=== PATIENT | female | born 2000 | race Caucasian/White ===

== ENCOUNTER 2021-09-30 11:59 | Outpatient (CLI) | payer OTHER ==
[2021-10-01 08:45] LABS: SARS-CoV-2 PCR by NAA Not Detected (NotDetected)
== END 2021-09-30 12:00 | disposition home or self-care (01) ==
LOC: CSHLAB 11:59
PROVIDERS: ATTEND Family Medicine
DX: Z01.812 Encounter for preprocedural laboratory examination (principal); Z20.822 Contact with and (suspected) exposure to COVID-19
CPT/HCPCS: U0003; U0005

== ENCOUNTER 2021-10-03 19:15 | Inpatient (IN) | payer OTHER ==
[2021-10-03] MEDS ORDERED: Diphenoxylate HCl/Atropine Tablet PO PRN (21:08)
[2021-10-03] MEDS ORDERED: hydrALAZINE 20 MG/ML VIAL SLOW IVP PRN (21:08)
[2021-10-03] MEDS ORDERED: Carboprost 250 MCG/ML AMP IM PRN (21:08)
[2021-10-03] MEDS ORDERED: Ondansetron PF 4 MG/2 ML Vial IVP PRN (21:08)
[2021-10-03] MEDS ORDERED: HYDROcodone/Acetaminophen 5/325 mg Tablet PO PRN (21:08)
[2021-10-03] MEDS ORDERED: Ibuprofen 800 MG TAB PO PRN (21:08)
[2021-10-03] MEDS ORDERED: Promethazine HCl 25 MG/ML VIAL IM PRN (21:08)
[2021-10-03] MEDS ORDERED: Lidocaine 1% (PF) 30 ML VIAL SC PRN (21:08)
[2021-10-03] MEDS ORDERED: Acetaminophen 500 MG TAB PO PRN (21:08)
[2021-10-03] MEDS ORDERED: Butorphanol Tartrate 1 MG/ML VIAL SLOW IVP PRN (21:08)
[2021-10-03] MEDS ORDERED: Methylergonovine 0.2 MG/ML VIAL IM PRN (21:08)
[2021-10-03] MEDS ORDERED: Misoprostol 200 MCG TAB PR PRN (21:08)
[2021-10-03] MEDS ORDERED: Penicillin G Potassium 5 MILL.UNITS in Sodium Chloride 0.9% 100 ML IVPB SCH (21:15)
[2021-10-03] MEDS ORDERED: NS w/ Oxytocin 30 units 500 ML IVPB SCH (22:00)
[2021-10-03] MEDS ORDERED: Lactated Ringer's 1,000 ML IV SCH (22:00)
[2021-10-03] MEDS ORDERED: NS w/ Oxytocin 30 units 500 ML IV SCH ×2 (22:00)
[2021-10-03 22:03] VITALS: BMI 36.1
[2021-10-03] MEDS: Misoprostol 100 MCG TAB VAG SCH (22:17)
[2021-10-03 22:22] LABS: Hemoglobin 8.9 g/dL (12.0-15.5); Mean Corpuscular HGB CONC 31.8 g/dL (32.0-36.0); Mean Corpuscular Hemoglobin 26.6 pg (27.0-33.0); Mean Corpuscular Volume 83.8 fl (81.6-98.3); Mean Platelet Volume 10.2 fl (7.4-10.4); Platelet Count 244 10x3/uL (150-450); RBC Distribution Width 15.4 % (11.5-14.5); Red Blood Cell (RBC) Count 3.34 10x6/uL (3.90-5.03); White Blood Cell (WBC) Count 10.2 10x3/uL (3.5-10.5)
[2021-10-03 22:58] LABS: Hep B Surf Ag Non-Reactive S/CO (NonReactive)
[2021-10-03 22:59] LABS: Syphilis Antibody Nonreactive (Nonreactive); Syphilis Antibody Index 0.03 S/CO (<1.00 Non-Reactive)
[2021-10-03 23:01] LABS: HBSAg Index 0.22 S/CO (0-0.99)
[2021-10-04] MEDS: Misoprostol 100 MCG TAB VAG SCH ×2 (01:50→19:21)
[2021-10-04] MEDS: Penicillin G 2.5 MILL.units 2.5 MILL.UNITS in Premix Bag 1 BAG IVPB SCH (05:11)
[2021-10-04] MEDS ORDERED: Fentanyl 2 mcg/Bup 0.1% Cadd 100 ML ONE (07:07)
[2021-10-04] MEDS ORDERED: Acetaminophen 325 MG TAB PO PRN (09:53)
[2021-10-04] MEDS ORDERED: Ondansetron PF 4 MG/2 ML Vial IVP PRN ×2 (09:53→14:06)
[2021-10-04] MEDS ORDERED: ePHEDrine Sulfate 50 MG/10 ML VIAL SLOW IVP PRN (09:53)
[2021-10-04] MEDS ORDERED: Naloxone HCl 0.4 mg/ml Vial IVP PRN ×2 (09:53)
[2021-10-04] MEDS ORDERED: diphenhydrAMINE 50 MG/ML VIAL IVP PRN (09:53)
[2021-10-04] MEDS ORDERED: Lactated Ringer's 500 ML IV PRN (09:53)
[2021-10-04] MEDS ORDERED: Hydrocerin (Eucerin) Cream 120 gm Jar TOP PRN (09:53)
[2021-10-04] MEDS ORDERED: Promethazine HCl 25 MG/ML VIAL IM PRN (09:53)
[2021-10-04] MEDS ORDERED: Communication Order-Pharmacy FS SCH (10:00)
[2021-10-04] MEDS ORDERED: Fentanyl 2 mcg/Bupivacaine 0.1% Cassette 100 ML EPIDURAL SCH (10:00)
[2021-10-04] MEDS ORDERED: Boostrix 0.5 ML (Tdap) VIAL IM ONE (14:06)
[2021-10-04] MEDS ORDERED: HYDROcodone/Acetaminophen 5/325 mg Tablet PO PRN (14:06)
[2021-10-04] MEDS ORDERED: Benzocaine-Menthol 82.5 ML CAN TOP PRN (14:06)
[2021-10-04] MEDS ORDERED: hydrALAZINE 20 MG/ML VIAL SLOW IVP PRN (14:06)
[2021-10-04] MEDS ORDERED: NS w/ Oxytocin 30 units 500 ML IV SCH (14:06)
[2021-10-04] MEDS ORDERED: diphenhydrAMINE 25 MG CAP PO PRN (14:06)
[2021-10-04] MEDS ORDERED: Milk Of Magnesia 30 ML UDCUP PO PRN (14:06)
[2021-10-04] MEDS ORDERED: Bisacodyl 10 MG SUPP PR PRN (14:06)
[2021-10-04] MEDS ORDERED: Lanolin Ointment 7 GM TUBE TOP PRN (14:06)
[2021-10-04] MEDS: HYDROcodone/Acetaminophen 5/325 mg Tablet PO PRN (19:15)
[2021-10-04] MEDS: Ibuprofen 800 MG TAB PO SCH ×2 (19:21→21:16)
[2021-10-04] MEDS: Ferrous Sulfate 325 MG TAB PO SCH (19:22)
[2021-10-04] MEDS: Docusate Calcium (SURFAK) 240 MG CAP PO SCH (21:16)
[2021-10-05] MEDS: Ibuprofen 800 MG TAB PO SCH (05:08)
[2021-10-05] MEDS: HYDROcodone/Acetaminophen 5/325 mg Tablet PO PRN (05:08)
[2021-10-05] MEDS ORDERED: Prenatal Vitamin 1 TAB PO SCH (09:00)
[2021-10-05] MEDS: Ferrous Sulfate 325 MG TAB PO SCH (09:19)
[2021-10-05] MEDS: Docusate Calcium (SURFAK) 240 MG CAP PO SCH (09:19)
[2021-10-05 11:50] VITALS: BP 99/55; TEMP 98.9
== END 2021-10-05 14:50 | disposition home or self-care (01) | DRG 807 ==
LOC: CSHLD 21:02 → CSHPP 10-04 16:35
PROVIDERS: ADMIT Family Medicine; ATTEND Family Medicine
PROC: 10E0XZZ Delivery of Products of Conception, External Approach (ICD-10-PCS; principal; 2021-10-03)
PROC: 0KQM0ZZ Repair Perineum Muscle, Open Approach (ICD-10-PCS; 2021-10-03)
PROC: 10907ZC Drainage of Amniotic Fluid, Therapeutic from Products of Conception, Via Natural or Artificial Opening (ICD-10-PCS; 2021-10-03)
PROC: 3E0DXGC Introduction of Other Therapeutic Substance into Mouth and Pharynx, External Approach (ICD-10-PCS; 2021-10-03)
DX: O70.1 Second degree perineal laceration during delivery (principal); Z37.0 Single live birth; Z3A.39 39 weeks gestation of pregnancy
CPT/HCPCS: 36415; 51702; 85027; 86780; 86850; 86900; 86901; 87340; J2590; J7120